=== PATIENT | male | born 1945 | race Caucasian/White ===

== ENCOUNTER → 2019-08-31 12:23 | Outpatient (CLI) | payer MEDICARE, OTHER, SELFPAY ==
--- NOTE | 2019-08-31 | DI.CT.S_ITS ---
PROCEDURE: CT CHEST ABD PEL WO CON INDICATIONS: ENCOUNTER FOR SCREENING FOR CARDIOVASCULAR DISEASE TECHNIQUE: After the administration of oral contrast, 5 mm thick sections acquired from the lung apices to the symphysis pubis. 5 mm thick coronal and sagittal reformats acquired, with additional 7 mm coronal MIP reformats through the lungs. For radiation dose reduction, the following was used: automated exposure control, adjustment of mA and/or kV according to patient size. COMPARISON: [facility], CT, ABDOMEN/PELVIS WITH CONTRAST, 12/19/2013, 9:02. Outside ultrasound abdominal aorta report 08/22/2019 FINDINGS: Image quality: Excellent. CHEST: Lungs and pleura: No acute pulmonary opacities. Mild streaky opacity at the lung bases which has the appearance of atelectasis. Tiny pleural and fissural nodules unchanged since 2010. No pleural effusions or pneumothorax. Central and peripheral airways are patent are normal in caliber. Mediastinum: Heart size is normal. Coronary artery calcifications. No pericardial effusion. No mediastinal adenopathy by CT size criteria. Ascending thoracic aorta measures up to 4.4 cm, (4/25). Mild calcified plaque at the aortic arch. Descending thoracic aorta measures 4.2 cm, (4/40). Esophagus is normal in caliber. No hiatal hernia. Chest wall: No axillary or supraclavicular adenopathy by size criteria. Thyroid gland is unremarkable. ABDOMEN: Solid organs: Liver is normal in size. Gallbladder is unremarkable. Pancreas is normal in contours. Spleen is normal in size. No adrenal nodules. Both kidneys are normal in size, without hydronephrosis or nephrolithiasis. Peritoneum and bowel: Small and large bowel loops are normal in caliber and wall thickness. No free fluid or air. Appendix is normal. Nodes and vessels: No retroperitoneal or mesenteric adenopathy by size criteria. Upper abdominal aorta measures up to 4.1 cm, (4/31). Moderate calcified atherosclerotic plaque of the infrarenal abdominal aorta and iliac arteries. Infrarenal abdominal aorta measures 2 cm. No iliac artery aneurysm. Miscellaneous: No ventral hernias. PELVIS: Genitourinary: Bladder wall thickness is normal. Prostatomegaly. Miscellaneous: Small fat-containing left inguinal hernia Bones: No suspicious bony lesions. No vertebral body compression fractures. IMPRESSION: 1. 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 2. 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 3. Proximal abdominal aorta aneurysm measuring 4.1 cm. 4. No infrarenal abdominal aortic aneurysm. Dictated by: Juan Sinha M.D. on 08/31/2019 at 15:26 Approved by: Juan Sinha M.D. on 08/31/2019 at 15:42
== END ==
PROVIDERS: PCP Family Medicine; Visit Provider Family Medicine
DX: Z13.6 Encounter for screening for cardiovascular disorders (principal); I71.4 Abdominal aortic aneurysm, without rupture; I71.2 Thoracic aortic aneurysm, without rupture; I25.10 Atherosclerotic heart disease of native coronary artery without angina pectoris; K40.90 Unilateral inguinal hernia, without obstruction or gangrene, not specified as recurrent
CPT/HCPCS: 71250; 74176

== ENCOUNTER → 2020-04-04 09:29 | Outpatient (CLI) | payer MEDICARE, OTHER, SELFPAY ==
--- NOTE | 2020-04-04 09:40 | DI.CT.S_ITS ---
PROCEDURE: CT CHEST WO CON INDICATIONS: Thoracoabdominal aortic aneurysm, without rupture TECHNIQUE: Noncontrast 5 mm thick sections acquired from the pulmonary apices to the posterior costophrenic angles. 1 mm lung window, 5 mm thick coronal and sagittal and 7 mm axial MIP reformats were then acquired. For radiation dose reduction, the following was used: automated exposure control, adjustment of mA and/or kV according to patient size. COMPARISON: CT, THORAX WITH CONTRAST, 07/11/2011, 10:39. FINDINGS: Image quality: Excellent. Lungs and pleura: Minimal atelectasis or scarring at the right lung base. A few scattered pulmonary nodules which are unchanged since 22/06 suggesting a benign etiology. For example: - Right upper lobe pulmonary nodule measuring 3 mm, (3/86), unchanged since 2010. -Right minor fissure nodule measuring 3 mm, (3/176), unchanged. -Left fissural nodule measuring mean diameter 4 mm, (3/178), unchanged. -Left lower lobe subpleural nodule measuring measures 6 mm, (3/314), unchanged. No new or enlarging pulmonary nodules. No pleural effusions or pneumothorax. Nodular opacity in the non dependent lower trachea is new compared to August 2019 and likely represents secretions. Mediastinum: Heart size is normal. No pericardial effusion. No mediastinal adenopathy by size criteria. Ascending thoracic aortic aneurysm measuring approximately 4.3 x 3.9 cm, (6/48 and 5/25), previously 4.1 x 3.8 cm when remeasured in a similar fashion, and more remotely 3 cm in 2010. Descending thoracic aorta measuring 4.2 cm, (5/41), unchanged. Proximal abdominal aorta measuring 4.1 cm, (5/32), unchanged. Esophagus is normal in caliber. No hiatal hernia. Bones and chest wall: No suspicious bony lesions. No vertebral body compression fractures. No axillary or supraclavicular adenopathy by size criteria. Thyroid gland is unremarkable. Abdomen: Visualized upper abdominal solid organs and bowel loops appear normal in the absence of contrast. IMPRESSION: 1. Stable ascending and descending thoracic aorta aneurysm since August 2019. Stable proximal abdominal aortic aneurysm. -follow-up examination with IV contrast would be helpful. 2. Several small pulmonary nodules which are stable since 22/06 suggesting a benign etiology. Dictated by: Juan Sinha M.D. on 04/04/2020 at 8:56 Approved by: Juan Sinha M.D. on 04/04/2020 at 9:14
== END ==
PROVIDERS: PCP Family Medicine; Referring Provider Family Medicine; Visit Provider Family Medicine
DX: I71.6 Thoracoabdominal aortic aneurysm, without rupture (principal); R91.8 Other nonspecific abnormal finding of lung field
CPT/HCPCS: 71250

== ENCOUNTER → 2021-03-13 10:28 | Outpatient (CLI) | payer MEDICARE, OTHER, SELFPAY ==
[2021-03-13 20:43] LABS: COVID19 - ORCAS (NP or Nasal) Negative (Negative)
== END ==
PROVIDERS: PCP Family Medicine; Visit Provider Physician Assistant Medical
DX: Z20.822 Contact with and (suspected) exposure to COVID-19 (principal)
CPT/HCPCS: C9803; U0003

== ENCOUNTER → 2021-03-14 09:17 | Outpatient (CLI) | payer MEDICARE, OTHER, SELFPAY ==
[2021-03-14 10:22] LABS: Alanine Aminotransferase 17 IU/L (<50); Albumin Globulin Ratio 1.6 (1.0-2.8); Alkaline Phosphatase 53 U/L (38-126); Aspartate Aminotransferase 27 IU/L (17-59); BUN Creatinine Ratio 13.2 (6-22); Bilirubin Total 2.1 mg/dL (0.2-1.3); Blood Urea Nitrogen 12 mg/dL (9-20); Calcium 9.1 mg/dL (8.4-10.2); Carbon Dioxide 24 mmol/L (22-32); Chloride 100 mmol/L (98-107); Cholesterol 140 mg/dL (140-199); Estimated Glomerular Filt Rate > 60.0 mL/min (>60); Globulin 2.5 g/dL (1.7-4.1); Glucose 89 mg/dL (80-110); HDL Cholesterol 75 mg/dL (40-60); HEMOLYSIS < 15 (0-50); LDL Cholesterol Calculated 56 mg/dL (<100); Potassium 4.6 mmol/L (3.4-5.1); Sodium 129 mmol/L (137-145); Total Protein 6.5 g/dL (6.3-8.2); Triglycerides 43 mg/dL (35-150)
--- NOTE | 2021-03-14 14:00 | DI.CT.S_ITS ---
PROCEDURE: CT ANGIO CHEST ABDOMEN INDICATIONS: Thoracic aortic aneurysm, without rupture TECHNIQUE: Precontrast 5 mm thick sections acquired from the lung apices to the iliac crests. After the administration of intravenous contrast, 2.5 mm thick sections again acquired from the lung apices to the iliac crests. 10 mm maximum intensity projection (MIP) oblique sagittal and coronal reformats were then acquired. For radiation dose reduction, the following was used: automated exposure control. COMPARISON: [facility], CT, CT CHEST WO CON, 04/04/2020, 9:35. FINDINGS: Image quality: Excellent. AORTA and its attachments: Again noted is an ascending aortic aneurysm. Size of the ascending aorta is stable. In fact, it measures slightly less. On previous image 35/2, the ascending aorta measured 4.7 cm. On the current study, aneurysmal dilatation measures 4.5 cm. There is normal variant anatomy in which the origin of the left vertebral artery arises independently off the aorta. The great vessel origins are widely patent without aneurysm. Descending thoracic aorta is unchanged in diameter, measuring 4.5 cm in diameter on previous image 41/2 in on current image 65/4. Unchanged caliber of supra celiac abdominal aorta, measuring 4.1 x 3.4 cm. Infrarenal abdominal aorta is not aneurysmally dilated it has non flow limiting plaque. CHEST: Lungs and pleura: No acute airspace opacities. No pleural effusions or pneumothorax. Central and peripheral airways are patent and normal in caliber. Mediastinum: Heart size is normal. No pericardial effusion. No mediastinal or hilar adenopathy by size criteria. Central pulmonary arteries are normal in size. Esophagus is normal in caliber. No hiatal hernias. Bones and chest wall: No axillary adenopathy by size criteria. Thyroid gland is unremarkable as visualized.. No suspicious bony lesions. No vertebral body compression fractures. Lumbar degenerative change. ABDOMEN: Vasculature: Celiac trunk and mesenteric arteries are patent. Renal arteries are also patent. Solid organs: Liver is normal in size and enhancement. Gallbladder is unremarkable . Biliary system is non dilated. Pancreas enhances normally. Spleen is normal in size and enhancement. No adrenal nodules. Both kidneys are normal in size and enhancement, without hydronephrosis. Peritoneum and bowel: No free fluid or air. Bowel loops are normal in caliber and wall thickness. Nodes and vessels: No retroperitoneal or mesenteric adenopathy by size criteria. Inferior vena cava is normal in morphology. Bones: No suspicious bony lesions. No vertebral body compression fractures. Miscellaneous: No ventral hernias. IMPRESSION: 1. Stable aneurysmal dilatation of the ascending and descending thoracic aorta, and supra celiac abdominal aorta. Infrarenal abdominal aorta is normal in caliber. Ascending aorta measures 4.5 cm in diameter. Descending thoracic aorta also measures 4.5 cm. Dictated by: Mj Sena M.D. on 03/14/2021 at 16:13 Approved by: Mj Sena M.D. on 03/14/2021 at 16:38
--- NOTE | 2021-03-15 06:45 | DI.NM.S_ITS ---
DATE OF SERVICE: PROCEDURE: Exercise stress test. DATE OF STUDY: 03/13/2021. INDICATIONS: PAD with underlying hypertension, hyperlipidemia. CARDIAC STRESS: The patient underwent exercise stress test under the supervision of an attending staff. He walked on the Bravo protocol for 6 minutes and 02 seconds, achieved 85 percent of target heart rate. The baseline blood pressure was 122/78, peak blood pressure 200/90. The patient achieved functional aerobic impairment of 2 percent, achieved 7 METS of workload. No chest pain. Baseline rhythm was sinus with some repolarization changes. During stress, there was some nonspecific upsloping ST depression in inferolateral leads without any convincing ischemic changes. Occasional PVCs in recovery. Some PACs were seen as well. CONCLUSION: Exercise stress test did not reveal any convincing ischemic changes. Mildly hypertensive blood pressure response. No anginal symptoms. Some PACs and PVCs were seen without any obvious ventricular tachycardia or atrial fibrillation. Vamshi Carlson - DUANE/marisa/wilfredo doc#: [id number]/job#: [id number] dd: 03/14/2021 18:08:00 dt: 03/15/2021 05:12:00 DICTATING /COPIES TO: Victoria Snider MD COPIES MNE: JULIETTE;
== END ==
PROVIDERS: PCP Family Medicine; Referring Provider Student in an Organized Health Care Education/Training Program; Visit Provider Student in an Organized Health Care Education/Training Program
DX: I71.2 Thoracic aortic aneurysm, without rupture (principal); I71.4 Abdominal aortic aneurysm, without rupture; I73.9 Peripheral vascular disease, unspecified; I10 Essential (primary) hypertension; E78.5 Hyperlipidemia, unspecified
CPT/HCPCS: 36415; 71275; 74175; 80053; 80061; 93017; Q9967

== ENCOUNTER → 2022-05-16 13:01 | Outpatient (CLI) | payer MEDICARE, OTHER, SELFPAY ==
--- NOTE | 2022-05-16 | DI.ECHO.S_ITS ---
[place] [facility]---------+ [facility] +---------+ : : [address] : : : : [id number] : : : : Phone: [phone]+ Echocardiogram Report + + :Name: REBEKA BABIN I Study Date: 05/16/2022 Height: 70 in : :[facility] ReadingLocation: Weight: 180 lb : : Gender: Male BSA: 2.0 m2 : :: 1945 Age: 76 yrs BP: 166/86 mmHg: :Reason For Study: Aortic, Ascending Aneurysm : :Ordering Physician: DES, : :TAYLOR Performed By: Zachery Causey : :Referring: TAYLOR NUNES : + + Interpretation Summary The left ventricle is normal in size. The ejection fraction is estimated to be 55-60%. No significant change in LVEF from the previous study. The right ventricle is normal in size and function. There is mild to moderate aortic regurgitation. Compared to the prior echo study, there has been no change in the severity of aortic regurgitation. The IVC is of normal diameter and collapses greater than 50% with a sniff. This suggests a low right atrial pressure of 3 mm Hg. The ascending aorta is moderately enlarged. 4.4 cm in diameter. Previously 4.5 cm. Procedure: A two-dimensional transthoracic echocardiogram with color flow and Doppler was performed. The study quality was technically adequate. Comparison is made with the echocardiogram of 11/20/2020. The patient was in sinus bradycardia with heart rates between 47-52 bpm during the exam. Left Ventricle: The left ventricle is normal in size. Proximal septal thickening is noted. There is no thrombus. Left ventricular systolic function is normal. The ejection fraction is estimated to be 55-60%. There are no focal wall motion abnormalities. Diastolic parameters suggest probable normal left ventricular diastolic function and normal filling pressures. Right Ventricle: The right ventricle is normal in size and function. Atria: Both atria are normal in size. The left atrium has remained unchanged in size since the prior echo exam. The right atrium has mildly decreased in size since the prior echo exam. A prominent eustachian valve is noted. The interatrial septum grossly appears intact with no obvious evidence for an atrial septal defect. The thickening of interatrial septum suggests lipomatous hypertrophy. Mitral Valve: There is mild mitral annular calcification. There is mild mitral regurgitation. Aortic Valve: There is mild aortic valve sclerosis. The aortic valve is trileaflet. There is discrete nodular thickening of the non- coronary cusp. There has been no significant change since the previous study. There is no aortic valve stenosis. There is mild to moderate aortic regurgitation. Compared to the prior echo study, there has been no change in the severity of aortic regurgitation. Tricuspid Valve: The tricuspid valve is normal. There is mild tricuspid regurgitation. The right ventricular systolic pressure is estimated to be at least 34 mmHg based on an estimated right atrial pressure of 3 mm Hg. Pulmonic Valve: The pulmonic valve is not well visualized. Great Vessels: The aortic root is normal size. The ascending aorta is moderately enlarged. The IVC is of normal diameter and collapses greater than 50% with a sniff. This suggests a low right atrial pressure of 3 mm Hg. Pericardium/ Pleura There is no pericardial effusion. There is no pleural effusion. MMode/2D Measurements & Calculations LVIDd: 5.3 cm LVOT diam: 2.3 cm LVIDs: 3.5 cm Ao root diam: 4.0 cm FS: 34.8 % asc Aorta Diam: 4.4 cm IVSd: 1.1 cm LVPWd: 0.98 cm LV shaffer. diameter/BSA (cm/m^2): 2.7 LV sys. diameter/BSA (cm/m^2): 1.7 LA A2 area: 22.4 cm2 RA long axis: 5.0 cm LA A4 area: 15.3 cm2 RA area: 15.1 cm2 LA length (vol): 4.5 cm RA vol: 39.0 ml LA vol: 64.6 ml RA : 19.5 ml/m2 LA vol index: 32.3 ml/m2 TAPSE: 2.3 cm Doppler Measurements & Calculations Ao V2 max: 152.4 cm/sec LVOT Max Santana: 142.7 cm/sec Ao V2 mean: 90.4 cm/sec LV V1 max P.1 mmHg Ao max P.3 mmHg LV V1 VTI: 31.3 cm Ao mean P.8 mmHg AUDELIA(I,D): 3.9 cm2 Ao V2 VTI: 33.9 cm AUDELIA(V,D): 3.9 cm2 sev ratio: 0.92 AUDELIA indexed to BSA (cm^2/m^2): 1.9 AI P1/2t: 780.8 msec AI dec slope: 157.4 cm/sec2 MV E max santana: 81.9 cm/sec TR max santana: 280.1 cm/sec MV A max santana: 49.5 cm/sec TR max P.4 mmHg MV E/A: 1.7 Med Peak E' Santana: 9.7 cm/sec E/E' med: 8.4 Lat Peak E' Santana: 10.9 cm/sec E/E' lat: 7.5 E/e' average: 8.0 MV dec time: 0.25 sec SV(LVOT): 131.3 ml Reading Physician:09:57 AM
--- NOTE | 2022-05-16 | DI.US.S_ITS ---
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 COMPARISON: [facility], CT, CT ANGIO CHEST ABDOMEN, 03/14/2021, 14:06. FINDINGS: Proximal aorta measures up to 4.5 centimeters in maximum transverse diameter. Mid aortic segment is obscured by bowel gas. Distal abdominal aorta measures 1.9 centimeters. Both the common iliac arteries are obscured by bowel gas and not identified. IMPRESSION: Limited study with obscuration of the mid aortic segment and both common iliac arteries due to the presence of bowel gas. Stable aneurysmal dilatation of the distal thoracic and proximal abdominal aorta up to 4.5 centimeters. Please note this is incompletely visualized sonographically as the thoracic portion is essentially sonographically non visible. Consider CT angiography in following this aneurysm. Dictated by: Zaheer Benz M.D. on 05/16/2022 at 16:13 Approved by: Zaheer Benz M.D. on 05/16/2022 at 16:15
== END ==
PROVIDERS: PCP Family Medicine; Referring Provider Internal Medicine Cardiovascular Disease; Visit Provider Internal Medicine Cardiovascular Disease
DX: I71.20 Thoracic aortic aneurysm, without rupture, unspecified (principal); I71.40 Abdominal aortic aneurysm, without rupture, unspecified; I08.3 Combined rheumatic disorders of mitral, aortic and tricuspid valves
CPT/HCPCS: 76775; 93306

== ENCOUNTER → 2023-08-27 09:02 | Outpatient (CLI) | payer MEDICARE, OTHER, SELFPAY ==
--- NOTE | 2023-08-27 10:24 | DI.ECHO.S_ITS ---
Echocardiogram Report + + :Name: REBEKA BABIN I Study Date: 08/27/2023 Height: 70 in : :[facility] ReadingLocation: Weight: 185 lb : : Gender: Male BSA: 2.0 m2 : :: 1945 Age: 77 yrs BP: 148/74 mmHg: :Reason For Study: NONRHEUMATIC AORTIC INSUFFICIENCY : :Ordering Physician: ADAN, : :JOCE Performed By: Zaheer Serrano : :Referring: JOCE KENNEY : + + Interpretation Summary The left ventricle is normal in size. The left ventricular ejection fraction is normal. The ejection fraction is estimated to be 60-65%. No significant change in LVEF. Normal RV size and function. There is mild to moderate aortic regurgitation. Compared to the prior echo study, there has been no change in the severity of aortic regurgitation. The ascending aorta is moderately enlarged. 4.5 cm in diameter. Previously 4.4 cm. Procedure: A two-dimensional transthoracic echocardiogram with color flow and Doppler was performed. The study quality was technically difficult. Comparison is made with the echocardiogram of 05/16/22. The patient was in normal sinus rhythm during the exam. The heart rate ranged between 57-71 bpm during the study. Left Ventricle: The left ventricle is normal in size. Proximal septal thickening is noted. There is no thrombus. The ejection fraction is estimated to be 60-65%. The left ventricular ejection fraction is normal. There are no focal wall motion abnormalities. Diastolic parameters suggest a relaxation abnormality of the left ventricle, consistent with probable normal filling pressures. Right Ventricle: The right ventricle is normal in size and function. Atria: The left atrial size is normal. There has been no significant change since the previous study. The right atrium is normal in size. The interatrial septum grossly appears intact with no obvious evidence for an atrial septal defect. Mitral Valve: There is mild mitral annular calcification. Redundant elongated chordae are noted. There is trace mitral regurgitation. Aortic Valve: The aortic valve is trileaflet. The aortic valve is mildly calcified. There is discrete nodular thickening of the non- coronary cusp. There is no aortic valve stenosis. There is mild to moderate aortic regurgitation. Compared to the prior echo study, there has been no change in the severity of aortic regurgitation. Tricuspid Valve: The tricuspid valve is normal in structure and function. Pulmonary artery pressures cannot be estimated because of the lack of a measurable TR jet velocity. There is trace tricuspid regurgitation. Pulmonic Valve: The pulmonic valve is not well visualized. There is no pulmonic valvular regurgitation. Great Vessels: The aortic root is normal size. The ascending aorta is moderately enlarged. The IVC is of normal diameter and collapses greater than 50% with a sniff. This suggests a low right atrial pressure of 3 mm Hg. Pericardium/ Pleura There is no pericardial effusion. There is no pleural effusion. MMode/2D Measurements & Calculations LVIDd: 4.5 cm LVOT diam: 2.3 cm LVIDs: 3.2 cm Ao root diam: 4.0 cm FS: 29.2 % asc Aorta Diam: 4.5 cm IVSd: 1.2 cm Ao Arch Diam (Prox Trans): 2.5 cm LVPWd: 1.1 cm LV shaffer. diameter/BSA (cm/m^2): 2.2 LV sys. diameter/BSA (cm/m^2): 1.6 LA A2 area: 16.2 cm2 RA long axis: 4.5 cm LA A4 area: 16.2 cm2 RA area: 14.1 cm2 LA length (vol): 4.3 cm RA vol: 37.2 ml LA vol: 52.6 ml RA : 18.4 ml/m2 LA vol index: 26.1 ml/m2 IVC diam: 1.9 cm RVD1 (basal): 3.4 cm RVD2 (mid): 3.0 cm TAPSE: 1.5 cm Doppler Measurements & Calculations Ao V2 max: 192.8 cm/sec LVOT Max Santana: 166.6 cm/sec Ao V2 mean: 113.3 cm/sec LV V1 max P.1 mmHg Ao max P.9 mmHg LV V1 VTI: 34.3 cm Ao mean P.4 mmHg AUDELIA(I,D): 3.6 cm2 Ao V2 VTI: 38.4 cm AUDELIA(V,D): 3.5 cm2 sev ratio: 0.89 AUDELIA indexed to BSA (cm^2/m^2): 1.8 AI P1/2t: 440.4 msec AI dec slope: 293.6 cm/sec2 MV E max santana: 59.6 cm/sec PA pr(Accel): 39.6 mmHg MV A max santana: 64.8 cm/sec MV E/A: 0.92 Med Peak E' Santana: 7.3 cm/sec E/E' med: 8.2 Lat Peak E' Santana: 7.4 cm/sec E/E' lat: 8.1 E/e' average: 8.1 MV dec time: 0.19 sec SV(LVOT): 137.8 ml Reading Physician:11:56 AM
[2023-08-27 10:32] LABS: BUN Creatinine Ratio 14.6 (6-22); Blood Urea Nitrogen 14 mg/dL (9-20); Calcium 8.8 mg/dL (8.4-10.2); Carbon Dioxide 24 mmol/L (22-32); Chloride 94 mmol/L (98-107); Estimated Glomerular Filt Rate > 60 mL/min (>60); Glucose 91 mg/dL (80-110); HEMOLYSIS < 15 (0-50); Potassium 4.7 mmol/L (3.4-5.1); Sodium 125 mmol/L (137-145)
== END ==
PROVIDERS: Internal Medicine Cardiovascular Disease; PCP Family Medicine; Referring Provider Nurse Practitioner Acute Care; Visit Provider Nurse Practitioner Acute Care
DX: I35.1 Nonrheumatic aortic (valve) insufficiency (principal); I34.81 Nonrheumatic mitral (valve) annulus calcification; I71.20 Thoracic aortic aneurysm, without rupture, unspecified; I71.40 Abdominal aortic aneurysm, without rupture, unspecified; I77.89 Other specified disorders of arteries and arterioles
CPT/HCPCS: 36415; 80048; 93306